=== PATIENT | male | born 1960 | race Caucasian/White ===

== ENCOUNTER 2019-03-15 10:23 | Emergency (ER) | payer MEDICARE ==
[~2019-03-15] VITALS: Ht 175.3 cm; Wt 75.0 kg
[~2019-03-15 10:23] MED LIST: CYCL-1 PO
[2019-03-15 10:39] VITALS: BP 122/76
[2019-03-15] MEDS ORDERED: PERM60CR19 TP (11:02)
== END 2019-03-15 11:25 | disposition home or self-care (01) ==
LOC: ER 10:24
DX: R21 Rash and other nonspecific skin eruption (principal); B86 Scabies; I10 Essential (primary) hypertension; J45.909 Unspecified asthma, uncomplicated; Z88.5 Allergy status to narcotic agent; Z79.899 Other long term (current) drug therapy
CPT/HCPCS: 99283

== ENCOUNTER 2019-05-12 11:34 | Emergency (ER) | payer MEDICARE, MEDICAID ==
[~2019-05-12] VITALS: Ht 175.3 cm; Wt 68.2 kg
[2019-05-12 13:08] VITALS: BP 134/78
[2019-05-12] MEDS ORDERED: DOXYCYCLINE 100MG CAPSULE PO STA (13:09)
[2019-05-12] MEDS ORDERED: ondansetron 4mg rapidly disintigrating tab PO ONE (13:10)
[2019-05-12] MEDS ORDERED: bacitracin 15gm ointment TP ONE (13:10)
[2019-05-12] MEDS ORDERED: fluconazole 100mg tablet PO ONE (13:10)
[2019-05-12] MEDS ORDERED: ONDA8TAB6 PO (13:16)
[2019-05-12] MEDS ORDERED: DOXY100C43 PO (13:16)
[2019-05-12] MEDS ORDERED: FLUC200T PO (13:16)
[2019-05-12] MEDS ORDERED: CEPH250T PO (13:17)
== END 2019-05-12 13:43 | disposition home or self-care (01) ==
LOC: ER 11:34
DX: N48.29 Other inflammatory disorders of penis (principal); R21 Rash and other nonspecific skin eruption; I10 Essential (primary) hypertension; J45.909 Unspecified asthma, uncomplicated; Z88.6 Allergy status to analgesic agent; Z79.2 Long term (current) use of antibiotics; Z79.899 Other long term (current) drug therapy; Z60.2 Problems related to living alone; Z59.0 Homelessness; Z56.0 Unemployment, unspecified
CPT/HCPCS: 99284

== ENCOUNTER 2019-08-13 11:04 | Emergency (ER) | payer MEDICARE, MEDICAID ==
[~2019-08-13 11:04] MED LIST changes: +FLUC200T PO; +ONDA8TAB6 PO
[2019-08-13 12:16] VITALS: BP 130/77
== END 2019-08-13 13:52 | disposition home or self-care (01) ==
LOC: ER 11:05
DX: R44.1 Visual hallucinations (principal); F15.951 Other stimulant use, unspecified with stimulant-induced psychotic disorder with hallucinations; I10 Essential (primary) hypertension; J45.909 Unspecified asthma, uncomplicated; F10.10 Alcohol abuse, uncomplicated; Z60.2 Problems related to living alone; Z59.0 Homelessness; Z56.0 Unemployment, unspecified; Z88.5 Allergy status to narcotic agent; Z79.899 Other long term (current) drug therapy; Y90.9 Presence of alcohol in blood, level not specified
CPT/HCPCS: 99284

== ENCOUNTER 2020-05-22 14:17 | Emergency (ER) | payer MEDICARE, MEDICAID ==
[~2020-05-22] VITALS: Ht 175.3 cm; Wt 72.9 kg
[~2020-05-22 14:17] MED LIST changes: +CLIN-5 PO; -CYCL-1 PO; -FLUC200T PO; +HYDR-4383 PO; -ONDA8TAB6 PO
[2020-05-22] MEDS ORDERED: diphenhydrAMINE 25mg capsule PO ONE (15:40)
[2020-05-22] MEDS ORDERED: HYDROcodone/acetaminophen 5mg/325mg tablet PO ONE (15:40)
[2020-05-22] MEDS ORDERED: MUPI22OI30 TOP (15:42)
[2020-05-22 15:47] VITALS: BP 151/95
== END 2020-05-22 16:03 | disposition home or self-care (01) ==
LOC: ER 14:18
DX: N49.2 Inflammatory disorders of scrotum (principal); I10 Essential (primary) hypertension; J45.909 Unspecified asthma, uncomplicated; F10.10 Alcohol abuse, uncomplicated; F15.90 Other stimulant use, unspecified, uncomplicated; Z60.2 Problems related to living alone; Z76.0 Encounter for issue of repeat prescription; Z56.0 Unemployment, unspecified; Z59.0 Homelessness; Z88.5 Allergy status to narcotic agent; Z79.2 Long term (current) use of antibiotics; Z79.899 Other long term (current) drug therapy
CPT/HCPCS: 99283; Q0163

== ENCOUNTER 2020-11-13 10:06 | Emergency (ER) | payer MEDICARE, MEDICAID ==
[~2020-11-13] VITALS: Ht 175.3 cm; Wt 77.3 kg
[~2020-11-13 10:06] MED LIST changes: -CLIN-5 PO
[2020-11-13 10:12] VITALS: BP 139/81
[2020-11-13] MEDS ORDERED: PERM60CR19 TOP (10:24)
== END 2020-11-13 10:35 | disposition home or self-care (01) ==
LOC: ER 10:07
DX: B86 Scabies (principal); I10 Essential (primary) hypertension; J45.909 Unspecified asthma, uncomplicated; F15.90 Other stimulant use, unspecified, uncomplicated; F10.10 Alcohol abuse, uncomplicated; Z60.2 Problems related to living alone; Z59.0 Homelessness; Z56.0 Unemployment, unspecified; Z88.5 Allergy status to narcotic agent; Z79.899 Other long term (current) drug therapy; Y90.9 Presence of alcohol in blood, level not specified
CPT/HCPCS: 99283

== ENCOUNTER 2020-11-28 14:04 | Emergency (ER) | payer MEDICARE, MEDICAID ==
[~2020-11-28] VITALS: Ht 175.3 cm; Wt 75.0 kg
[~2020-11-28 14:04] MED LIST changes: +PERM60CR19 TOP
[2020-11-28 14:13] VITALS: BP 136/87
[2020-11-28] MEDS ORDERED: LIDOcaine 1% W/epiNEPHrine 1:200,000 10ml vial IJ ONE (15:15)
[2020-11-28] MEDS ORDERED: TETanus/Pertussis (Acell)/Diphther VAC/PF (Tdap-Adult) 0.5ml syringe IMVAC ONE (15:15)
[2020-11-28] MEDS ORDERED: DOXY100C2 PO (15:49)
== END 2020-11-28 16:09 | disposition home or self-care (01) ==
LOC: ER 14:05
DX: L02.11 Cutaneous abscess of neck (principal); I10 Essential (primary) hypertension; J45.909 Unspecified asthma, uncomplicated; F15.90 Other stimulant use, unspecified, uncomplicated; F10.10 Alcohol abuse, uncomplicated; Z60.2 Problems related to living alone; Z59.0 Homelessness; Z56.0 Unemployment, unspecified; Z88.5 Allergy status to narcotic agent; Z79.899 Other long term (current) drug therapy; Y90.9 Presence of alcohol in blood, level not specified
CPT/HCPCS: 10060; 87070; 87077; 87186; 90471; 90715; 99284

== ENCOUNTER 2023-07-17 16:00 | Emergency (ER) | payer MEDICARE, MEDICAID ==
[~2023-07-17] VITALS: Ht 175.3 cm; Wt 72.7 kg
[~2023-07-17 16:00] MED LIST changes: -PERM60CR19 TOP
[2023-07-17 16:27] LABS: BASOPHILS # (AUTO) 0.1 X10'3 (0-0.2); BASOPHILS % (AUTO) 0.8 % (0-1); EOSINOPHILS # (AUTO) 0.3 X10'3 (0-0.9); EOSINOPHILS % (AUTO) 4.1 % (0-6); HEMATOCRIT 43.5 % (42.0-52.0); HEMOGLOBIN 14.6 g/dl (14.0-17.9); LYMPHOCYTES # (AUTO) 1.5 X10'3 (1.1-4.8); LYMPHOCYTES % (AUTO) 22.1 % (21-51); MEAN CORPUSCULAR HGB CONC 33.5 g/dL (33.0-36.5); MEAN CORPUSCULAR VOLUME 92.7 FL (78-98); MEAN PLATELET VOLUME 7.1 FL (7.4-10.4); MONOCYTES # (AUTO) 0.5 X10'3 (0-0.9); MONOCYTES % (AUTO) 7.7 % (2-12); NEUTROPHILS # (AUTO) 4.5 X10'3 (1.8-7.7); NEUTROPHILS % (AUTO) 65.3 % (42-75); PLATELET COUNT 367 X10'3 (140-440); RED BLOOD COUNT 4.69 X10'6 (4.70-6.10); RED CELL DISTRIBUTION WIDTH 13.8 % (11.5-14.5); WHITE BLOOD COUNT 6.9 X10'3 (4.5-11.0)
[2023-07-17 16:40] LABS: ALANINE AMINOTRANSFERASE 24 U/L (12-78); ALBUMIN 3.8 G/DL (3.4-5.0); ALKALINE PHOSPHATASE 97 IU/L (46-116); ANION GAP 7 (8-16); ASPARTATE AMINO TRANSFERASE 17 U/L (10-37); BILIRUBIN,TOTAL 0.5 MG/DL (0.1-1.0); BLOOD UREA NITROGEN 18 MG/DL (7-18); BUN/CREATININE RATIO 14.5 (10.0-20.0); CALCIUM 9.1 MG/DL (8.5-10.1); CHLORIDE 100 MMOL/L (99-107); CREATININE 1.24 MG/DL (0.60-1.10); GLUCOSE 131 MG/DL (70-104); LIPASE 53 U/L (16-77); SODIUM 135 MMOL/L (135-145); TOTAL CARBON DIOXIDE 28.5 MMOL/L (24-32); TOTAL PROTEIN 7.7 G/DL (6.4-8.2); eCRCL 59 ML/MIN; eGFR 59 ML/MIN
[2023-07-17] MEDS ORDERED: iohexol 300mg/ml 100ml inj. ONE (18:54)
[2023-07-17 18:56] LABS: BILIRUBIN,URINE NEGATIVE (Neg); CLARITY,URINE CLEAR (Clear); COLOR,URINE YELLOW (Yellow); GLUCOSE, URINE NEGATIVE (Neg); KETONES,URINE NEGATIVE (Neg); LEUKOCYTE ESTERASE ,URINE NEGATIVE (Neg); NITRITES, URINE NEGATIVE (Neg); OCCULT BLOOD,URINE NEGATIVE (Neg); PH,URINE 5.5 (4.8-8.0); PROTEIN,URINE TRACE mg/dl (Neg); UROBILINOGEN,URINE 0.2 E.U/dL (0.2-1.0)
[2023-07-17 18:59] LABS: UA COLLECTION TYPE CLN CATCH MIDSTREAM
[2023-07-17 19:02] LABS: BACTERIA,URINE NONE SEEN /HPF (Neg); RBC,URINE 0-2 /HPF (0-2); WBC,URINE 0-4 /HPF (0-4)
[2023-07-17 19:03] LABS: CAL OXALATE CRYSTALS 3+ /HPF (NEGATIVE); HYALINE CASTS 0-3 /LPF (NEGATIVE); SQUAMOUS EPITHELIAL CELL,UR NONE SEEN /LPF (FEW)
[2023-07-17 21:11] VITALS: BP 132/80; PULSE 68; RESP 14; TEMP 98.6; O2SAT 99
== END 2023-07-17 21:16 | disposition home or self-care (01) ==
LOC: ER 16:01
DX: K46.9 Unspecified abdominal hernia without obstruction or gangrene (principal)
CPT/HCPCS: 36415; 74177; 80053; 81001; 83690; 85025; 99285; J3490; Q9967